=== PATIENT | male | born 1975 | race Caucasian/White ===

== ENCOUNTER 2018-08-01 15:36 | Emergency (ER) | payer BC ==
[2018-08-01] MEDS ORDERED: cefTRIAXone 1 GM Vial IM ONE (16:23)
[2018-08-01] MEDS ORDERED: methylPREDNISolone Acetate 80 MG/ML SDV IM ONE (16:23)
--- NOTE | 2018-08-01 16:38 | EDM.PDOC ---
ED HPI GENERAL MEDICAL PROBLEM - General Chief Complaint: ENT Problem Stated Complaint: sore throat and right ear pain Time Seen by Provider: 08/01/18 16:15 - History of Present Illness INITIAL COMMENTS - FREE TEXT/NARRATIVE: Rebeca is a 42 year old male who presents to the ED with c/o right sided throat and ear pain. He reports symptoms started yesterday. Reports he has some associated nasal congestion, but mostly just his throat. Did start to cough today. Denies any fever, chills, shortness of breath. Has been taking ibuprofen without full relief. Reports he came in because he hopes to go to work tomorrow. Has been drinking and eating ok. Denies any other complaints. Right Throat Pain Score (Numeric/FACES): 7 - Related Data Allergies Allergy/AdvReac Type Severity Reaction Status Date / Time Dairy Products AdvReac Other Verified 08/01/18 15:46 Home Meds: Home Meds Ascorbate Calcium [Vitamin C] 500 mg PO DAILY 08/01/18 [History] Aspirin [Halfprin] 81 mg PO DAILY 08/01/18 [History] Azithromycin [Zithromax] 250 mg PO DAILY 5 Days #6 tab 08/01/18 [Rx] Cholecalciferol (Vitamin D3) [Vitamin D] 1,000 units PO DAILY 08/01/18 [History] Multivitamin [Daily Multiple Vitamin] 1 tab PO DAILY 08/01/18 [History] Omeprazole Magnesium [Prilosec Otc] 20 mg PO DAILY 08/01/18 [History] Past Medical History HEENT History: Reports: Impaired Vision - Past Surgical History HEENT Surgical History: Reports: Adenoidectomy, Tonsillectomy Social & Family History - Tobacco Use Smoking Status *Q: Never Smoker - Caffeine Use Caffeine Use: Reports: Soda - Recreational Drug Use Recreational Drug Use: No ED ROS ENT - Review of Systems Review Of Systems: ROS reveals no pertinent complaints other than HPI. ED EXAM, ENT - Physical Exam Exam: See Below Exam Limited By: No Limitations General Appearance: Alert, WD/WN, No Apparent Distress Eye Exam: Bilateral Eye: EOMI, Normal Fundi, Normal Inspection Ears: Normal External Exam, Normal Canal, Hearing Grossly Normal, Normal TMs Nose: Normal Inspection, Normal Mucousa, No Blood Mouth/Throat: Normal Gums, Normal Lips, Normal Teeth, Hoarse Voice, Pharyngeal Erythema, Uvular Edema. No: Dry Mucous Membrane, Throat Swelling Head: Atraumatic, Normocephalic Neck: Normal Inspection, Supple, Non-Tender, Full Range of Motion Respiratory/Chest: No Respiratory Distress, Lungs Clear, Normal Breath Sounds, No Accessory Muscle Use, Chest Non-Tender Cardiovascular: Normal Peripheral Pulses, Regular Rate, Rhythm, No Edema, No Gallop, No JVD, No Murmur, No Rub Lymphatic: Adenopathy (right anterior cervical chain) Course - Vital Signs Last Recorded V/S: Last Vital Signs Temp 98.4 F 08/01/18 15:44 Pulse 69 08/01/18 15:44 Resp 16 08/01/18 15:44 BP 149/92 H 08/01/18 15:44 Pulse Ox 98 08/01/18 15:44 - Orders/Labs/Meds Meds: Medications Discontinued Medications Generic Name Dose Route Start Last Admin Trade Name Freq PRN Reason Stop Dose Admin Ceftriaxone Sodium 1 gm 08/01/18 16:23 Rocephin IM 08/01/18 16:24 ONETIME ONE Methylprednisolone Acetate 80 mg 08/01/18 16:23 Depo-Medrol IM 08/01/18 16:24 ONETIME ONE Departure - Departure Time of Disposition: 16:35 Disposition: Home, Self-Care 01 Condition: Good Clinical Impression: Uvulitis Pharyngitis Qualifiers: Pharyngitis/tonsillitis etiology: unspecified etiology Qualified Code(s): J02.9 - Acute pharyngitis, unspecified - Discharge Information *PRESCRIPTION DRUG MONITORING PROGRAM REVIEWED*: Not Applicable *COPY OF PRESCRIPTION DRUG MONITORING REPORT IN PATIENT JULEE: Not Applicable Prescriptions: Azithromycin [Zithromax] 250 mg PO DAILY 5 Days #6 tab Instructions: Pharyngitis, [id number] Referrals: Edmar Sheikh PA-C [Primary Care Provider] - Forms: ED Department Discharge Additional Instructions: Meds as directed. Can be picked up at pharmacy in [place] in the morning. Rest and push fluids Alternate Tylenol and ibuprofen every 3 hours as needed for pain/fever Throat lozenges/spray as needed for dysphagia May return to work as long as afebrile for 24 hours or 24 hours after starting antibiotics Follow up with PCP in clinic if symptoms worsen or do not improve
== END 2018-08-01 16:50 | disposition home or self-care (01) ==
LOC: CC.ED 15:36
DX: K12.2 Cellulitis and abscess of mouth (principal); J02.9 Acute pharyngitis, unspecified; Z91.011 Allergy to milk products; Z79.899 Other long term (current) drug therapy; Z79.82 Long term (current) use of aspirin
CPT/HCPCS: 96372; 99282; J0696; J1040

== ENCOUNTER 2019-08-29 16:13 | Observation (INO) | payer BC ==
[2019-08-29 16:53] LABS: CHLORIDE,CL 99 mEq/L (98-106); SODIUM,NA 137 mEq/L (136-145)
[2019-08-29] MEDS ORDERED: Acetaminophen 325 MG Tab PO PRN (17:08)
[2019-08-29] MEDS ORDERED: Ibuprofen 200 MG Tab PO PRN (17:08)
[2019-08-29] MEDS ORDERED: Ondansetron 4 MG/2 ML SDV IV PRN (17:08)
[2019-08-29] MEDS ORDERED: fentaNYL 100 MCG/2 ML SDV IVPUSH PRN (17:08)
[2019-08-29] MEDS ORDERED: Sodium Chloride 0.9% 1,000 ML IV SCH (17:15)
[2019-08-29] MEDS ORDERED: Iopamidol 755 Mg/ML 200 ML Bottle IV ONE (17:16)
[2019-08-29] MEDS ORDERED: metroNIDAZOLE/Normal Saline 500 MG in Premix Bag 1 BAG IV SCH (18:00)
[2019-08-29] MEDS ORDERED: Levofloxacin/Dextrose 5%-Water 500 MG in Premix Bag 1 BAG IV SCH (18:00)
--- NOTE | 2019-08-29 19:32 | PCM.PN ---
- General Info Date of Service: 08/29/19 Functional Status: Reports: Pain Controlled - Review of Systems General: Reports: Fever HEENT: Reports: No Symptoms Pulmonary: Reports: No Symptoms Cardiovascular: Reports: No Symptoms Gastrointestinal: Reports: Abdominal Pain, Diarrhea, Nausea. Denies: Vomiting Genitourinary: Reports: No Symptoms Musculoskeletal: Reports: No Symptoms Skin: Reports: No Symptoms Neurological: Reports: No Symptoms - Patient Data Vitals - Most Recent: Last Vital Signs Temp 100.7 F H 08/29/19 17:09 Pulse 96 08/29/19 17:09 Resp 16 08/29/19 17:09 BP 147/92 H 08/29/19 17:09 Pulse Ox 100 08/29/19 17:09 Weight - Most Recent: 240 lb Lab Results Last 24 Hours: Laboratory Results - last 24 hr 08/29/19 08/29/19 08/29/19 Range/Units 16:17 16:17 16:17 WBC 17.9 H (5.0-10.0) 10^3/uL RBC 4.66 (4.50-6.00) 10^6/uL Hgb 14.3 (14.0-18.0) g/dL Hct 42.0 (40.0-54.0) % MCV 90.1 (82.0-94.0) fL MCH 30.7 (27.0-32.0) pg MCHC 34.0 (33.0-38.0) g/dL RDW Coeff of Brennan 12.7 (11.0-15.0) % Plt Count 193 (150-400) 10^3/uL Neut % (Auto) 81.9 (35-85) % Lymph % (Auto) 9.2 L (10-55) % [place] % (Auto) 8.3 (0-16) % Eos % (Auto) 0.4 (0-5) % Baso % (Auto) 0.2 (0-3) % Neut # (Auto) 14.65 H (1.80-7.00) 10^3/uL Lymph # (Auto) 1.64 (1.00-4.80) 10^3/uL [place] # (Auto) 1.48 H (0.00-0.80) 10^3/uL Eos # (Auto) 0.07 (0.00-0.45) 10^3/uL Baso # (Auto) 0.03 10^3/uL Sodium 137 (136-145) mEq/L Potassium 3.7 (3.5-5.0) mEq/L Chloride 99 (98-106) mEq/L Carbon Dioxide 26 (21-32) mmol/L BUN 10 (7-18) mg/dL Creatinine 1.0 (0.7-1.3) mg/dL Est Cr Clr Drug Dosing TNP Estimated GFR (MDRD) > 60 (>=60) mL/min Glucose 103 H (75-99) mg/dL Lactic Acid 1.0 (0.4-2.0) mmol/L Calcium 9.3 (8.4-10.1) mg/dL Total Bilirubin 1.0 (0.0-1.0) mg/dL AST 36 (15-37) U/L ALT 98 H (12-78) U/L Alkaline Phosphatase 72 (46-116) U/L C-Reactive Protein 33.1 H (0.2-0.8) mg/dL Total Protein 8.3 H (6.4-8.2) g/dL Albumin 3.8 (3.4-5.0) g/dL Amylase 21 L (25-115) U/L Lipase 70 L (73-393) U/L Urine Color (YELLOW) Urine Appearance (CLEAR) Urine pH (4.5-8.0) Ur Specific [place] (1.003-1.020) Urine Protein (NEGATIVE) mg/dL Urine Glucose (UA) (NEGATIVE) mg/dL Urine Ketones (NEGATIVE) mg/dL Urine Occult Blood (NEGATIVE) Urine Nitrite (NEGATIVE) Urine Bilirubin (NEGATIVE) Urine Urobilinogen (0.2-1.0) EU/dL Ur Leukocyte Esterase (NEGATIVE) Urine RBC (0-5) /HPF Urine WBC (0-5) /HPF Ur Squamous Epith Cells (NOT SEEN) /HPF Urine Bacteria (NOT SEEN) /HPF Urine Mucus (NOT SEEN) /HPF 08/29/ Range/Units 16:17 WBC (5.0-10.0) 10^3/uL RBC (4.50-6.00) 10^6/uL Hgb (14.0-18.0) g/dL Hct (40.0-54.0) % MCV (82.0-94.0) fL MCH (27.0-32.0) pg MCHC (33.0-38.0) g/dL RDW Coeff of Brennan (11.0-15.0) % Plt Count (150-400) 10^3/uL Neut % (Auto) (35-85) % Lymph % (Auto) (10-55) % [place] % (Auto) (0-16) % Eos % (Auto) (0-5) % Baso % (Auto) (0-3) % Neut # (Auto) (1.80-7.00) 10^3/uL Lymph # (Auto) (1.00-4.80) 10^3/uL [place] # (Auto) (0.00-0.80) 10^3/uL Eos # (Auto) (0.00-0.45) 10^3/uL Baso # (Auto) 10^3/uL Sodium (136-145) mEq/L Potassium (3.5-5.0) mEq/L Chloride (98-106) mEq/L Carbon Dioxide (21-32) mmol/L BUN (7-18) mg/dL Creatinine (0.7-1.3) mg/dL Est Cr Clr Drug Dosing Estimated GFR (MDRD) (>=60) mL/min Glucose (75-99) mg/dL Lactic Acid (0.4-2.0) mmol/L Calcium (8.4-10.1) mg/dL Total Bilirubin (0.0-1.0) mg/dL AST (15-37) U/L ALT (12-78) U/L Alkaline Phosphatase (46-116) U/L C-Reactive Protein (0.2-0.8) mg/dL Total Protein (6.4-8.2) g/dL Albumin (3.4-5.0) g/dL Amylase (25-115) U/L Lipase (73-393) U/L Urine Color Dark yellow (YELLOW) Urine Appearance Clear (CLEAR) Urine pH 5.5 (4.5-8.0) Ur Specific [place] >= 1.030 H (1.003-1.020) Urine Protein 100 H (NEGATIVE) mg/dL Urine Glucose (UA) 100 H (NEGATIVE) mg/dL Urine Ketones >=160 H (NEGATIVE) mg/dL Urine Occult Blood Negative (NEGATIVE) Urine Nitrite Negative (NEGATIVE) Urine Bilirubin Negative (NEGATIVE) Urine Urobilinogen 2.0 H (0.2-1.0) EU/dL Ur Leukocyte Esterase Negative (NEGATIVE) Urine RBC Not seen (0-5) /HPF Urine WBC Not seen (0-5) /HPF Ur Squamous Epith Cells Occasional H (NOT SEEN) /HPF Urine Bacteria Moderate H (NOT SEEN) /HPF Urine Mucus Occasional H (NOT SEEN) /HPF Pola Results Last 24 Hours: Microbiology 08/29/19 17:40 Anaerobic Blood Culture - Final Blood Med Orders - Current: Current Medications Acetaminophen (Tylenol) 650 mg PO Q4H PRN PRN Reason: Pain (Mild 1-3)/fever Fentanyl (Sublimaze) 50 mcg IVPUSH Q6H PRN PRN Reason: Pain Last Admin: 08/29/19 19:24 Dose: 50 mcg Levofloxacin/Dextrose 500 mg/ (Premix) 100 mls @ 100 mls/hr IV Q24H [facility] Last Admin: 08/29/19 19:15 Dose: 100 mls/hr Metronidazole 500 mg/ Premix 100 mls @ 100 mls/hr IV Q8H [facility] Last Admin: 08/29/19 18:07 Dose: 100 mls/hr Sodium Chloride (Normal Saline) 1,000 mls @ 150 mls/hr IV ASDIRECTED [facility] Last Admin: 08/29/19 18:06 Dose: 150 mls/hr Ibuprofen (Motrin) 400 mg PO Q6H PRN PRN Reason: Pain (mild 1-3) Ondansetron HCl (Zofran) 4 mg IV Q4H PRN PRN Reason: Nausea/Vomiting Discontinued Medications Iopamidol (Isovue-370 (76%)) 160 ml IV ONETIME ONE Stop: 08/29/19 17:17 Last Admin: 08/29/19 17:57 Dose: 148 ml - Exam General: Alert, Oriented HEENT: Pupils Equal Neck: Supple Lungs: Clear to Auscultation Cardiovascular: Regular Rate, Regular Rhythm GI/Abdominal Exam: Normal Bowel Sounds, Soft, Tender (tender to both lower quadrants.) Skin: Warm, Dry Psy/Mental Status: Alert - Problem List & Annotations (1) Diverticulitis large intestine w/o perforation or abscess w/o bleeding SNOMED Code(s): 9862626 Code(s): K57.32 - DVTRCLI OF LG INT W/O PERFORATION OR ABSCESS W/O BLEEDING Status: Acute Priority: High Current Visit: Yes - Problem List Review Problem List Initiated/Reviewed/Updated: Yes - My Orders Last 24 Hours: Pt admitted earlier today by Jaquan Sheikh with abdominal pain. CT report called to me revealed rectosigmoid abscess with concern for perforated diverticula. Discussed case with Dr. Bart Russell, surgeon senior information security engineer at [facility]. - Plan Plan:: Transfer by BLS to [facility] admit. Dr. Bart Russell accepting physician. Will be NPO with IV fluids.
--- NOTE | 2019-09-02 07:27 | PCM.DCSUM1 ---
Discharge Summary - Hospital Course HPI Initial Comments: Pt was admitted about 3 hours prior to transfer from the clinic for lower abdominal pain and elevated white count and CRP. IV had been initiated at time of admit. CT scan was ordered at that time. Diagnosis: Stroke: No Modified Valerie Scale: No Symptoms at All Modified [place] Scale Score: 0 - Discharge Data Discharge Date: 08/29/19 Discharge Disposition: DC/Tfer to Acute Hospital 02 Condition: Good - Referral to Home Health Primary Care Physician: Edmar Sheikh PA-C - Discharge Diagnosis/Problem(s) (1) Diverticulitis large intestine w/o perforation or abscess w/o bleeding SNOMED Code(s): 5712924 ICD Code: K57.32 - DVTRCLI OF LG INT W/O PERFORATION OR ABSCESS W/O BLEEDING Status: Acute Priority: High - Patient Summary/Data Labs Pending at D/C: blood cultures Hospital Course: Pt was admitted from the clinic earlier in the day for rectal pain and bilateral lower quadrant pain. IVs, IV antibiotics initiated. CT scan obtained and found to have a rectal sigmoid abscess from ruptured diverticulum. Pt requests transfer to [place]. Surgeon notified and accepted transfer and transferred by ambulance with IV running. - Patient Instructions Diet: NPO - Discharge Plan *PRESCRIPTION DRUG MONITORING PROGRAM REVIEWED*: Not Applicable *COPY OF PRESCRIPTION DRUG MONITORING REPORT IN PATIENT JULEE: Not Applicable Home Medications: Home Meds Ascorbate Calcium [Vitamin C] 500 mg PO DAILY 08/01/18 [History] Cholecalciferol (Vitamin D3) [Vitamin D] 1,000 units PO DAILY 08/01/18 [History] Multivitamin [Daily Multiple Vitamin] 1 tab PO DAILY 08/01/18 [History] Omeprazole Magnesium [Prilosec Otc] 20 mg PO DAILY 08/01/18 [History] Lysine HCl [l-Lysine] 500 mg PO DAILY 08/29/19 [History] Oxygen Therapy Mode: Room Air - Discharge Summary/Plan Comment DC Time >30 min.: Yes - General Info Date of Service: 08/29/19 Functional Status: Reports: Other (pain in the lower quadrants of abdomen bilaterally and around rectal area.) - Review of Systems General: Reports: Fever HEENT: Reports: No Symptoms Pulmonary: Reports: No Symptoms Cardiovascular: Reports: No Symptoms Gastrointestinal: Reports: Abdominal Pain, Diarrhea, Nausea. Denies: Vomiting Genitourinary: Reports: No Symptoms Musculoskeletal: Reports: No Symptoms Skin: Reports: No Symptoms Neurological: Reports: No Symptoms - Patient Data Vitals - Most Recent: Last Vital Signs Temp 100.6 F 08/29/19 19:28 Pulse 96 08/29/19 17:09 Resp 16 08/29/19 17:09 BP 147/92 H 08/29/19 17:09 Pulse Ox 100 08/29/19 17:09 Weight - Most Recent: 240 lb GUMARO Results - Last 24 hrs: Microbiology 08/29/19 17:40 Aerobic Blood Culture - Preliminary Blood NO GROWTH AFTER 3 DAYS Anaerobic Blood Culture - Preliminary NO GROWTH AFTER 3 DAYS 08/29/19 17:40 Aerobic Blood Culture - Preliminary Blood NO GROWTH AFTER 3 DAYS Anaerobic Blood Culture - Final Med Orders - Current: Current Medications Discontinued Medications Acetaminophen (Tylenol) 650 mg PO Q4H PRN PRN Reason: Pain (Mild 1-3)/fever Fentanyl (Sublimaze) 50 mcg IVPUSH Q6H PRN PRN Reason: Pain Last Admin: 08/29/19 19:24 Dose: 50 mcg Levofloxacin/Dextrose 500 mg/ (Premix) 100 mls @ 100 mls/hr IV Q24H [facility] Last Admin: 08/29/19 19:15 Dose: 100 mls/hr Metronidazole 500 mg/ Premix 100 mls @ 100 mls/hr IV Q8H [facility] Last Admin: 08/29/19 18:07 Dose: 100 mls/hr Sodium Chloride (Normal Saline) 1,000 mls @ 150 mls/hr IV ASDIRECTED [facility] Last Admin: 08/29/19 18:06 Dose: 150 mls/hr Ibuprofen (Motrin) 400 mg PO Q6H PRN PRN Reason: Pain (mild 1-3) Iopamidol (Isovue-370 (76%)) 160 ml IV ONETIME ONE Stop: 08/29/19 17:17 Last Admin: 08/29/19 17:57 Dose: 148 ml Ondansetron HCl (Zofran) 4 mg IV Q4H PRN PRN Reason: Nausea/Vomiting - Exam General: Reports: Alert, Oriented HEENT: Reports: Pupils Equal, Pupils Reactive Neck: Reports: Supple Lungs: Reports: Clear to Auscultation, Normal Respiratory Effort Cardiovascular: Reports: Regular Rate, Regular Rhythm GI/Abdominal Exam: Normal Bowel Sounds, Soft, Tender (to lower quadrants bilaterally.) Extremities: Normal Inspection, Normal Range of Motion, No Pedal Edema, Normal Capillary Refill Skin: Reports: Warm, Dry Psy/Mental Status: Reports: Alert, Normal Affect
== END 2019-08-29 20:45 ==
LOC: CC.FCMC 16:13 → UNDOADMOB 17:05 → CC.MS 17:05 → UNDOADMOB 17:08 → UNDODISOB 20:45
PROVIDERS: ADMIT Physician Assistant Medical; ATTEND Family Medicine
DX: K63.0 Abscess of intestine (principal); J30.2 Other seasonal allergic rhinitis; Z91.011 Allergy to milk products; Z79.899 Other long term (current) drug therapy; Z87.891 Personal history of nicotine dependence
CPT/HCPCS: 36415; 74177; 80053; 81001; 82150; 83605; 83690; 85025; 86140; 87040; 96365; 96367; 96375; G0378; J1956; J3010; J3490; J7030; Q9967